=== PATIENT | male | born 1960 | race Caucasian/White ===

== ENCOUNTER → 2016-05-27 | Outpatient (CLI) | payer BC ==
[~2016-05-27] MED LIST: LORTAB 5/500 501 TAB PO; PREDNISONE20 MG PO
== END ==
LOC: COL.VAS 13:01
DX: I82.493 Acute embolism and thrombosis of other specified deep vein of lower extremity, bilateral (principal); R60.0 Localized edema

== ENCOUNTER → 2016-06-04 | Outpatient (CLI) | payer BC | LOC: COL.VAS 13:45 | DX: Z53.9 Procedure and treatment not carried out, unspecified reason (principal) ==

== ENCOUNTER → 2017-07-26 | Outpatient (CLI) | payer BC | LOC: COL.RAD 10:58 | DX: R22.42 Localized swelling, mass and lump, left lower limb (principal) ==

== ENCOUNTER → 2018-01-08 | Emergency (ER) | payer BC ==
[~2018-01-08] VITALS: Ht 182.9 cm; Wt 93.2 kg
[~2018-01-08] MED LIST changes: +FLEXERIL 1010 MG/TAB PO; +FOLIC ACID 11 MG/TA1 PO; +MEDROL4 MG PO; +METHOTREXA2.5 MG/TAB PO; +PREDNISONE10 MG PO; +ULTRAM 50MG TAB50 MG PO
[2018-01-08 19:35] VITALS: BP 141/88; PULSE 87; TEMP 98.7
== END ==
LOC: COL.ER 19:26
DX: M54.5 Low back pain (principal); M62.830 Muscle spasm of back; M51.37 Other intervertebral disc degeneration, lumbosacral region; Z98.890 Other specified postprocedural states; Z90.89 Acquired absence of other organs
CPT/HCPCS: J1885

== ENCOUNTER → 2018-01-11 | Outpatient (CLI) | payer BC ==
[~2018-01-11] VITALS: Ht 182.9 cm; Wt 92.3 kg
[2018-01-11 13:09] VITALS: BP 151/91; PULSE 60
[2018-01-11 13:55] VITALS: BP 162/89; PULSE 61
== END ==
LOC: COL.RAD 12:00
DX: M51.36 Other intervertebral disc degeneration, lumbar region (principal); M48.07 Spinal stenosis, lumbosacral region
CPT/HCPCS: J3301

== ENCOUNTER 2018-03-15 07:40 | Outpatient (CLI) | payer BC ==
[~2018-03-15] VITALS: Ht 182.9 cm; Wt 93.4 kg
[2018-03-15 08:07] VITALS: BP 146/83; PULSE 67
[2018-03-15 09:15] VITALS: BP 135/88; PULSE 63
[2018-03-15 09:37] VITALS: BP 135/88; PULSE 63
[2018-03-15 09:47] LABS: CSF APPEARANCE CLEAR; CSF COLOR COLORLESS; CSF RBC 0 /mm3 (0-0)
[2018-03-15 09:48] LABS: GLUCOSE,CSF 58 mg/dL (40-70); TOTAL PROTEIN,CSF 78 mg/dL (15-45)
[2018-03-15 09:49] LABS: CSF MONONUCLEAR 100 % (70-100); CSF POLYMORPHONUCLEAR 0 % (0-6)
[2018-03-17 13:10] LABS: ALBUMIN CSF 34.9 mg/dL (<=27.0); IGG/ALBUMIN SERUM 0.26 (<=0.40)
[2018-03-17 13:22] LABS: CSF IGG/ALBUMIN 0.1 (<=0.21); CSF,IGG 3.6 mg/dL (<=8.1); CSF-IGG INDEX 0.38 (<=0.85)
== END 2018-03-15 12:30 | disposition home or self-care (01) ==
LOC: COL.RAD 07:40
PROVIDERS: Psychiatry & Neurology Neurology
DX: R93.0 Abnormal findings on diagnostic imaging of skull and head, not elsewhere classified (principal); R90.82 White matter disease, unspecified

== ENCOUNTER 2018-03-20 09:45 | Emergency (ER) | payer BC ==
[~2018-03-20] VITALS: Ht 182.9 cm; Wt 89.5 kg
[2018-03-20 10:29] LABS: BASO % 0.5 % (0.0-2.0); EOS # 0.1 (0.0-0.7); EOS % 1.6 % (0-4.0); GRAN # 4.1 (1.4-6.5); GRAN % 70.1 % (42.2-75.2); HEMATOCRIT 44.6 % (42.0-52.0); HEMOGLOBIN 15.6 g/dl (13.5-18.0); LYMPH % 17.8 % (20.0-51.0); MEAN CELL VOLUME 92 fl (80.0-100.0); MEAN CORPUSCULAR HEMOGLOBIN 32 pg (27.0-31.0); MEAN CORPUSCULAR HGB CONC 35 g/dl (33.0-37.0); MEAN PLATELET VOLUME 9.6 fl (7.4-10.4); MONO # 0.6 (0.1-0.6); MONO % 9.5 % (1.7-9.3); PLATELET COUNT 234 K/mm3 (130-400); RED BLOOD COUNT 4.84 M/mm3 (4.20-5.60); REDCELL DISTRIBUTION WIDTH-CV 11.6 % (11.5-14.5)
[2018-03-20 10:47] LABS: ALANINE AMINOTRANSFERASE 38 U/L (21-72); ALBUMIN 4.3 gm/dL (3.5-5.0); ALKALINE PHOSPHATASE 63 U/L (50-136); ANION GAP 5 mmol/L (7-16); AST,SGOT 23 U/L (15-37); BILIRUBIN,TOTAL 1.2 mg/dL (0.0-1.0); BLOOD UREA NITROGEN 16 mg/dL (9-20); C-REACTIVE PROTEIN < 0.5 mg/dL (0.0-0.9); CALCIUM 9.5 mg/dL (8.4-10.2); CARBON DIOXIDE 32 mmol/L (22-30); CHLORIDE 103 mmol/L (98-107); GLUCOSE 100 mg/dL (74-106); POTASSIUM 4.1 mmol/L (3.4-5.0); SODIUM 140 mmol/L (137-145); TOTAL PROTEIN 7.5 gm/dL (6.4-8.2)
[2018-03-20 13:14] VITALS: BP 156/91; PULSE 69; TEMP 98.8
== END 2018-03-20 13:14 | disposition home or self-care (01) ==
LOC: COL.ER 09:45
PROVIDERS: Emergency Medicine
DX: G97.1 Other reaction to spinal and lumbar puncture (principal); Z88.0 Allergy status to penicillin
CPT/HCPCS: J1885; J2250; J2405; J7030

== ENCOUNTER 2018-10-17 11:51 | Emergency (ER) | payer BC ==
[~2018-10-17] VITALS: Ht 182.9 cm; Wt 95.5 kg
[2018-10-17 11:56] VITALS: TEMP 97
[2018-10-17] MEDS ORDERED: PERCOCET 325 MG1 TA2 PO (13:03)
[2018-10-17 13:59] VITALS: BP 152/88; PULSE 81
== END 2018-10-17 14:01 | disposition home or self-care (01) ==
LOC: COL.ER 11:51
DX: S52.502A Unspecified fracture of the lower end of left radius, initial encounter for closed fracture (principal); V19.9XXA Pedal cyclist (driver) (passenger) injured in unspecified traffic accident, initial encounter
CPT/HCPCS: J2405; J3010; Q4050

== ENCOUNTER → 2020-01-16 | Outpatient (CLI) | payer BC ==
[~2020-01-16] MED LIST changes: +PERCOCET 325 MG1 TA2 PO
== END ==
LOC: ZCOL.LAB 18:39
DX: Z20.828 Contact with and (suspected) exposure to other viral communicable diseases (principal)

== ENCOUNTER → 2022-08-12 | Outpatient (CLI) | payer BC | LOC: COL.RAD 14:52 | DX: I65.29 Occlusion and stenosis of unspecified carotid artery (principal); H93.A3 Pulsatile tinnitus, bilateral ==

== ENCOUNTER → 2023-06-24 | Outpatient (CLI) | payer BC ==
[~2023-06-24] VITALS: Ht 182.9 cm; Wt 90.5 kg
[~2023-06-24] MED LIST changes: +ASPIRIN E.C. 8181 MG PO; +CRESTOR40 MG PO; +FLOMAX 0.40.4 MG/CAP PO; +MASON NATURAL2000 IU PO; +ONE-A-DAY ESSE1 EACH PO; +REPATHA SU140 MG/1 M SQ; +TOPROL XL 50MG50 MG PO; +Triamcinolone 40 MG/ML 1 ML VIAL IJ SCH; +VITAMIN B11000 MCG/M IM; +ZOCOR 20MG20 MG PO
[2023-06-24 13:11] VITALS: BP 143/74; PULSE 57; TEMP 97.7
[2023-06-24 14:53] VITALS: BP 136/80; PULSE 65
== END ==
LOC: COL.RAD 12:36
DX: M48.061 Spinal stenosis, lumbar region without neurogenic claudication (principal); M51.36 Other intervertebral disc degeneration, lumbar region
CPT/HCPCS: J0665; J3301